=== PATIENT | female | born 1970 | race Caucasian/White ===

== ENCOUNTER 2018-01-18 07:47 | Outpatient (CLI) | payer OTHER ==
--- NOTE | 2018-01-18 13:29 | NM ---
PARATHYROID SCAN WITH SPECT IMAGING: Date: 01/18/18 HISTORY: Hyperparathyroidism. TECHNIQUE: A nuclear medicine parathyroid scan was performed after administration of 25 mCi technetium-99m sesta mibi. Immediate and 1 hour delayed images were performed. SPECT images were obtained at 1 hour. 2 tabitha r delayed images were also performed. FINDINGS: On the immediate images, there is apparent uptake just beneath the left thyroid lobe in the left neck . This is not seen on the 1 hour or 2 hour planar images, and no abnormality is seen in this location on the SPECT images. This is of uncertain significance. No other areas of increased uptake or retain ed retention of the radiopharmaceutical was seen to suggest a parathyroid adenoma. IMPRESSION: No lesion identified to suggest a parathyroid adenoma. POS: [facility]
== END 2018-01-18 07:48 | disposition home or self-care (01) ==
LOC: NM 07:47
PROVIDERS: ATTEND Family Medicine
DX: E21.1 Secondary hyperparathyroidism, not elsewhere classified (principal)
CPT/HCPCS: 78072; A9500

== ENCOUNTER 2018-05-17 12:58 | Outpatient (CLI) | payer OTHER | END 2018-05-17 12:59 | disposition home or self-care (01) | LOC: BICMAMMO 12:58 | PROVIDERS: ATTEND Family Medicine | DX: Z13.820 Encounter for screening for osteoporosis (principal); E21.3 Hyperparathyroidism, unspecified; E55.9 Vitamin D deficiency, unspecified; E03.4 Atrophy of thyroid (acquired); Z98.84 Bariatric surgery status | CPT/HCPCS: 77080 ==

== ENCOUNTER 2018-08-17 08:51 | Outpatient (CLI) | payer OTHER ==
--- NOTE | 2018-08-17 12:03 | MRI ---
MRI LEFT KNEE WITHOUT CONTRAST: Date: 08/17/18 HISTORY: Soft tissue injury. Pain. COMPARISON: None. FINDINGS: Medial Meniscus: There is a chronic full thickness radial tear of the posterior horn/body junction of the medial menis cus with extensive degenerative signal and maceration of the medial meniscal body. Moderate degenerat tresa signal in posterior horn extending into the root attachment. Lateral Meniscus: Intact. ACL has mild to moderate intraligamentous degeneration. MCL and LCL are intact. PCL intact. Extensor Mechanism: Quadriceps tendon, patella, and patellar tendon are intact. Cartilage: Patellofemoral compartment: There is some high grade cartilage fissuring of the medial patellar face t and medial trochlea, as well as central trochlea. Medial compartment: There is approximately 50% cartilage fraying along the central weightbearing elsa face of the medial femoral condyle and medial tibial plateau. Some early subchondral reactive marrow changes, although is likely stress related. Lateral compartment: There is a high grade cartilage defect in the central weightbearing surface of the lateral tibial plateau measuring 5.0 mm in transverse x 7.0 mm in AP dimension. This is a near fu ll thickness cartilage defect. Soft Tissues: Large, loculated popliteal cyst with evidence of leak. There is fluid leaking from the medial menisca l body deep to the medial collateral ligament and superficial to the medial collateral ligament. Mode rate size joint effusion. Mild synovitis. IMPRESSION: 1. 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 There is loss o f hoop stress with Grade III chondromalacia, as well as stress edema to medial femoral condyle and me dial tibial plateau. 2. 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 3. Large loculated leaking popliteal cyst. 4. Moderate joint effusion with evidence of synovitis. 5. Mild intraligamentous degeneration of ACL. 6. High grade near full thickness cartilage defect with a central weightbearing surface of the later al tibial plateau measuring 5.0 x 7.0 mm with overlying 2.0 x 3.0 mm cartilage defect of the lateral femoral condyle. POS: [facility]
== END 2018-08-17 08:52 | disposition home or self-care (01) ==
LOC: BICMRI 08:51
PROVIDERS: ATTEND Family Medicine
DX: M25.562 Pain in left knee (principal); S83.282A Other tear of lateral meniscus, current injury, left knee, initial encounter; M94.262 Chondromalacia, left knee; M71.22 Synovial cyst of popliteal space [Baker], left knee; M65.9 Synovitis and tenosynovitis, unspecified; M25.462 Effusion, left knee